=== PATIENT | female | born 1950 | race Caucasian/White ===

== ENCOUNTER 2024-09-02 12:16 | Emergency (ER) | payer MEDICARE, SELFPAY ==
--- NOTE | ~2024-09-02 | XR_ITS ---
EXAMINATION:XR cervical spine 4-5V DATE: 09/02/2024 13:50 INDICATION: Neck pain TECHNIQUE: AP, lateral, lateral swimmers and odontoid views of the cervical spine are provided. COMPARISON: None FINDINGS: Odontoid is intact. Mild osteoarthritis at the atlantoaxial articulation. 30 degrees upper thoracic l evoscoliosis with moderate spondylosis. There is 20 degrees compensatory cervicothoracic dextroscolio sis. 2 mm anterolisthesis C4 on C5. Vertebral body heights are normal. Moderate disc height loss at C 5-C6. Mild disc height loss at C4-C5. There is likely mild left-sided disc height loss at C6-C7 on th e frontal projection with the endplates not clearly profiled on the lateral projection. Moderate to s evere mid to lower cervical uncovertebral and facet osteoarthritis. Prevertebral soft tissues are no rmal. Mild pleural parenchymal scarring at the lateral right upper lung zone. IMPRESSION: 1. 20 degrees cervicothoracic dextroscoliosis and 30 degree upper thoracic levoscoliosis with moderat e spondylosis. Reviewed, dictated and finalized at location A. ROENTEROLOGY TECHNICIAN IMPRESSION: 1. 20 degrees cervicothoracic dextroscoliosis and 30 degree upper thoracic levo scoliosis with moderate spondylosis.
--- NOTE | ~2024-09-02 | XR_ITS ---
EXAMINATION: XR shoulder LT min 2V, XR shoulder RT min 2V DATE: 09/02/2024 13:51 INDICATION: Bilateral shoulder pain post fall TECHNIQUE: 1. AP internally and externally rotated and transscapular Y views of the right shoulder were obtained . 2. AP internally and externally rotated and transscapular Y views of the left shoulder were obtained. COMPARISON: None FINDINGS: Right shoulder: Normal alignment at the right shoulder. There is a 30 degrees upper thoracic levoscoliosis. No fractu re.Mild right glenohumeral and acromioclavicular osteoarthritis. Mild pleural parenchymal scarring al ebony the lateral right upper lung zone. Soft tissues are unremarkable. Left shoulder: Normal alignment at the left shoulder. No fracture.Mild left glenohumeral and acromioclavicular oste oarthritis. Additional mild left apical pleural-parenchymal scarring. Soft tissues are unremarkable. IMPRESSION: Mild osteoarthritis at the bilateral glenohumeral and acromioclavicular joints. No acute osseous abno rmality. Reviewed, dictated and finalized at location A. R FEEDER IMPRESSION: Mild osteoarthritis at the bilateral glenohumeral and acromioclavicular joints. No acute osseous abnormality.
--- NOTE | 2024-09-02 12:33 | ED_ITS ---
HPI - Fall General Chief Complaint: Fall Stated Complaint: Fall Injury/Right and Left Shoulder/Neck Pain Source: patient Mode of arrival: ambulatory Limitations: no limitations History of Present Illness HPI Narrative: 74 y/o female presented for c/o pain to multiple sites after she fell at home 2 days ago. Endorses neck and back pain, worse with any movements. Also reports bilateral shoulder pain with slightly decreased ROM. Denies numbness, tingling weakness or deformity. Pt states a rug slipped under her and she fell landing on the right shoulder. She lifted herself with the left arm and felt pain as well. Pt is applying heat, not taking anything for pain stating she has history of ulcers and cannot tolerate any medication. Related Data Home Medications Medication Instructions Recorded Confirmed atorvastatin 40 mg tablet 40 mg PO DAILY 09/02/24 09/02/24 Allergies Allergy/AdvReac Type Severity Reaction Status Date / Time codeine Allergy Unknown Vomiting Verified 09/02/24 12:34 diazepam Allergy Unknown Vomiting Verified 09/02/24 12:34 Penicillins Allergy Unknown Vomiting Verified 09/02/24 12:34 Sulfa (Sulfonamide Allergy Unknown Vomiting Verified 09/02/24 12:34 Antibiotics) muscle relaxers AdvReac Unknown Nausea and Uncoded 05/09/19 17:07 Vomiting Review of Systems Review of Systems: CONSTITUTIONAL: Denies body aches, fever, chills EYES: Denies visual changes CARDIOVASCULAR: Denies chest pain, palpitations, or edema. RESPIRATORY: Denies cough or dyspnea. GASTROINTESTINAL: Denies abdominal pain, nausea, vomiting, or diarrhea. SKIN: Denies rash, itching, or wounds. MUSCULOSKELETAL: reports neck, back pain, shoulder pain NEUROLOGIC: Denies headache, numbness, tingling, or weakness. All systems reviewed & are unremarkable except as noted in HPI and below [facility] Past Medical History Medical History (Updated 09/02/24 @ 14:26 by Randa Hamilton, SURINDER) Diabetes Comments At time of signature, I have reviewed and agree with nursing past medical, surgical, social and family history unless otherwise noted. Please see nursing chart for further information. There is no relevant family history pertinent to the presenting complaint Exam Narrative: GENERAL: Well-appearing HEAD: Normocephalic, atraumatic. EYES: PERRLA NECK: Decreased ROM due to pain. Tender with palpation to C3-4 area. No step off. CHEST: Speaks in full sentences. No respiratory distress. HEART: Regular rate and rhythm. Normal and equal peripheral pulses. EXTREMITIES: BUEs have normal strength and sensation. Right trap tenderness with palpation. Slightly decreased range of motion at shoulders due to pain with movement; tolerates lateral extension to 90 degrees. No edema or ecchymosis, No point tenderness. No open wounds, or obvious deformity; alignment normal, pulse palpable and equal bilaterally, skin warm, dry, pink. Capillary refill less than 3 seconds. SKIN: Warm, dry NEURO: Alert and oriented x3. PSYCH: Normal mood and affect Course Course Emergency Course: Patient is aware of diagnosis, understands and agrees to treatment plan. Antic ipatory guidance given. Patient agrees to follow-up as directed and is aware of reasons to seek care at the emergency department. Portions of this record may have been created with voice recognition software Level of Care: Express Care Visit Vital Signs Vital signs: Vital Signs Temperature 99.9 F H 09/02/24 12:34 Pulse Rate 85 09/02/24 12:34 Respiratory Rate 16 09/02/24 12:34 Blood Pressure 142/67 H 09/02/24 12:34 Pulse Oximetry 99 09/02/24 12:34 Oxygen Delivery Room Air 09/02/24 12:34 Temperature 99.9 F H 09/02/24 13:03 Pulse Rate 85 09/02/24 13:03 Respiratory Rate 16 09/02/24 13:03 Blood Pressure 142/67 H 09/02/24 13:03 Pulse Oximetry 99 09/02/24 13:03 Oxygen Delivery Room Air 09/02/24 13:03 Reviewed MDM - Fall MDM Narrative Medical decision making narrative: Discussed physical exam findings and xray results. Advised pt and family CT imaging would be best given pt's neck pain after a fall. They decline ER transfer at this time. The patient is clinically sober, AA&Ox3, free from distracting injury. The patient has demonstrated concrete thinking/reasoning, has maintained an stringing machine tender/reasonable conversation, appears to have intact insight/judgment/reason and therefore has capacity to make decisions. Given the patients presentation, we communicated our concern for neck pain in laymans terms. The patient verbalized an understanding. The patient is aware the evaluation is incomplete & many troublesome conditions have not been r/o. We have discussed the need for further ED workup. We have discussed the range of possible dx, potential testing & treatment options. Our discussions included the potential outcomes of leaving AMA, including worsening of their condition, becoming permanently disabled/in pain/critically ill, or . Despite these efforts, we were unable to convince the pt to go to the ER. We have attempted to offer tx/rx/guidance for any ramon erous conditions which are most likely and/or dangerous. We have answered all questions and have implored the patient to go to ER [facility] to complete the w/u. A staff member witnessed the patient consenting to AMA. Differential Diagnosis Differential diagnosis: Likely other (Shoulder dislocation, clavicle fracture, humerus fracture, scapular fracture, acromioclavicular joint injury, rotator cuff tear, bicep tendon rupture, tricep tendon rupture, MVC, cervical strain, cervical radiculopathy, cervical spine fracture/dislocation/herniation Musculoskeletal injury, torticol) Imaging Data Radiologist's impression: Patient: Pam Colbert : 1950 MR#: [id number] Age: 74 Acct:[id number] Loc: [facility] ADM Date: 09/02/24Attending Dr: Ordering Physician: Randa Hamilton APRN Date of Service: 09/02/24 Procedure(s): XR cervical spine 4-5V Accession Number(s): [id number] cc: Azael, Ashley HERRERA; Randa Hamilton PHOTOGRAPHY ASSISTANT~ EXAMINATION:XR cervical spine 4-5V DATE: 09/02/2024 13:50 INDICATION: Neck pain TECHNIQUE: AP, lateral, lateral swimmers and odontoid views of the cervical spine are provided. COMPARISON: None FINDINGS: Odontoid is intact. Mild osteoarthritis at the atlantoaxial articulation. 30 degrees upper thoracic levoscoliosis with moderate spondylosis. There is 20 degrees compensatory cervicothoracic dextroscoliosis. 2 mm anterolisthesis C4 on C5. Vertebral body heights are normal. Moderate disc height loss at C5-C6. Mild disc height loss at C4-C5. There is likely mild left-sided disc height loss at C6-C7 on the frontal projection with the endplates not clearly profiled on the lateral projection. Moderate to severe mid to lower cervical uncovertebral and facet osteoarthritis. Prevertebral soft tissues are normal. Mild pleural parenchymal scarring at the lateral right upper lung zone. IMPRESSION: 1. 20 degrees cervicothoracic dextroscoliosis and 30 degree upper thoracic levoscoliosis with moderate spondylosis. Patient: Pam Colbert : 1950 MR#: [id number] Age: 74 Acct:[id number] Loc: [facility] ADM Date: 09/02/24Attending Dr: Ordering Physician: Randa Hamilton APRN Date of Service: 09/02/24 Procedure(s): XR shoulder LT min 2V; XR shoulder RT min 2V Accession Number(s): [id number]; [id number] cc: Azael, Ashley HERRERA; Randa Hamilton APRN~ EXAMINATION: XR shoulder LT min 2V, XR shoulder RT min 2V DATE: 09/02/2024 13:51 INDICATION: Bilateral shoulder pain post fall TECHNIQUE: 1. AP internally and externally rotated and transscapular Y views of the right shoulder were obtained. 2. AP internally and externally rotated and transscapular Y views of the left shoulder were obtained. COMPARISON: None FINDINGS: Right shoulder: Normal alignment at the right shoulder. There is a 30 degrees upper thoracic levoscoliosis. No fracture.Mild right glenohumeral and acromioclavicular osteoarthritis. Mild pleural parenchymal scarring along the lateral right upper lung zone. Soft tissues are unremarkable. Left shoulder: Normal alignment at the left shoulder. No fracture.Mild left glenohumeral and acromioclavicular osteoarthritis. Additional mild left apical pleural- parenchymal scarring. Soft tissues are unremarkable. IMPRESSION: Mild osteoarthritis at the bilateral glenohumeral and acromioclavicular joints. No acute osseous abnormality. Discharge Plan Discharge Clinical Impression: Acute neck pain, Bilateral shoulder pain Patient Disposition: Home, Self-Care Condition: Stable Instructions: Shoulder Pain (ED), Acute Neck Pain (ED) Additional Instructions: You were advised to transfer to the ER and you decline at this time. You were made aware of the risk of refusal including worsening of your condition and . Report to the ER immediately by calling 911 for any worsening symptoms. Rest. Avoid pushing, pulling, lifting or anything that worsens the symptoms If you cannot take Tylenol or ibuprofen, recommend Alternate ice/heat to the site. Lidocaine or salon pas pain patch or use pain cream like icy/hot or biofreeze. Follow up with your primary care provider next week Go to the ER for worsening symptoms or concerns Prescriptions: No Action atorvastatin 40 mg tablet 40 mg PO DAILY Follow-up/Referrals: Azael,MD Ashley [Primary Care Provider] -
[2024-09-02 12:34] VITALS: BP 142/67; PULSE 85; RESP 16; TEMP 37.7; O2SAT 99
[2024-09-02 13:03] VITALS: BP 142/67; PULSE 85; RESP 16; TEMP 37.7; O2SAT 99
== END 2024-09-02 14:36 | disposition home or self-care (01) ==
PROVIDERS: Emergency Provider Nurse Practitioner Family; PCP Family Medicine
DX: M54.2 Cervicalgia (principal); M25.512 Pain in left shoulder; M25.511 Pain in right shoulder; E11.9 Type 2 diabetes mellitus without complications
CPT/HCPCS: 72050; 73030; 99214; G0463

== ENCOUNTER 2025-09-06 10:28 | Emergency (ER) | payer MEDICARE, SELFPAY ==
[2025-09-06 10:36] VITALS: BP 113/75; PULSE 68; RESP 16; TEMP 36.9; O2SAT 100
--- NOTE | 2025-09-06 11:01 | ED.FEMALEGU ---
HPI - Female Genitourinary General Chief complaint: Urogenital-Female Stated complaint: blood in urine Time Seen by Provider: 09/06/25 10:47 Source: patient, family, RN notes reviewed and old records reviewed Mode of arrival: ambulatory Limitations: no limitations History of Present Illness HPI Narrative: 75 year old female accompanied by family member with complaints of pressure with urination and blood noted on tissue when wiping since yesterday evening. Patient has dementia and is poor historian and niece is accompanying patient to clinic today. Niece states that family has recently stepped in to taking care of patient has multimedia engineer healthcare management consultant during the day but is alone at night but they are in process of getting some Agency help for nighttime. 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 Family reports that they would like to find new doctor in [place] area since patient resides in [place]. Niece states that patient's b;ood sugar has been elevated for over a year and has never been put on any medication. MD elicited complaint: dysuria and UTI (blood urine) Pertinent past history: hysterectomy (cervical cancer, blood sugar has been elevated and has never been put on any medication) and other (alzheimers) Onset (ago): day(s) (since yesterday evening blood noted on tissue) Location of symptoms: urethra Severity: moderate Vaginal discharge: none Vaginal bleeding: none Urinary symptoms: Dysuria and Hematuria Related Data Allergies Allergy/AdvReac Type Severity Reaction Status Date / Time codeine Allergy Unknown Vomiting Verified 09/06/25 10:49 diazepam Allergy Unknown Vomiting Verified 09/06/25 10:49 Penicillins Allergy Unknown Vomiting Verified 09/06/25 10:49 Sulfa (Sulfonamide Allergy Unknown Vomiting Verified 09/06/25 10:49 Antibiotics) muscle relaxers AdvReac Unknown Nausea and Uncoded 05/09/19 17:07 Vomiting Review of Systems Review of Systems: CONSTITUTIONAL: Denies fever, chills, or sweats. CARDIOVASCULAR: Denies chest pain, palpitations, or edema. RESPIRATORY: Denies cough or dyspnea. GASTROINTESTINAL: Denies abdominal pain, nausea, vomiting, or diarrhea. GENITOURINARY: Reports dysuria, frequency, urgency. Denies flank pain + hematuria. SKIN: Denies rash or itching. MUSCULOSKELETAL: Denies back pain or myalgia. Denies CVA tenderness NEUROLOGIC: Denies headache, patient has dementia All systems reviewed & are unremarkable except as noted in HPI and below PMFSH Past Medical History Medical History (Updated 09/07/25 @ 12:08 by Harriett Adame APRN) Alzheimers disease Uterine cancer Diabetes Surgical History Surgical History (Updated 09/06/25 @ 11:10 by Harriett Adame APRN) H/O: hysterectomy Social History Social History (Updated 09/07/25 @ 11:57 by Harriett Adame APRN) Smoking status: Never smoker Alcohol intake: former Alcohol use details: social Substance use type: does not use Living arrangements: alone Additional living arrangements comments: has family healthcare management consultant with patient during the day are trying to arrange some agency help at night. 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 There is no relevant family history pertinent to the presenting complaint Exam Narrative: GENERAL: elderly-appearing, fair-nourished, frail and in no acute distress. HEAD: Normocephalic, atraumatic. NECK: Supple. no lymphadenopathy CHEST: Clear to auscultation. No respiratory distress. no cough noted [id number] on room air HEART: Regular rate and rhythm. No murmur heard. Normal peripheral pulses. ABDOMEN: Soft, nontender, to palpation, nondistended, normal active bowel sounds. No CVA tenderness, blood noted in urine by patient and family EXTREMITIES: Normal range of motion. No edema. SKIN: Warm, dry, no rash. NEURO: No focal deficits. Alert and oriented X3 unable to recall information has history of Alzheimer needs frequent explanation and instruction. Course Course Level of Care: Express Care Visit Vital Signs Vital signs: Vital Signs Temperature 36.9 C 09/06/25 10:36 Pulse Rate 68 09/06/25 10:36 Respiratory Rate 16 09/06/25 10:36 Blood Pressure 113/75 09/06/25 10:36 Pulse Oximetry 100 09/06/25 10:36 Oxygen Delivery Room Air 09/06/25 10:36 Temperature 36.9 C 09/06/25 10:36 Pulse Rate 68 09/06/25 10:36 Respiratory Rate 16 09/06/25 10:36 Blood Pressure 113/75 09/06/25 10:36 Pulse Oximetry 100 09/06/25 10:36 Oxygen Delivery Room Air 09/06/25 10:36 reviewed [facility] Narrative Medical decision making narrative: Differential diagnostic considerations for female urogenital? issues include urinary tract infection, bacterial vaginosis, cervicitis, ovarian cyst, vaginitis, STI exposure, ovarian torsion, ectopic , cyst of Bartholin?s gland, cystitis, dysmenorrhea.?? Differential Diagnosis Differential Diagnosis: pressure with urination. hematuria, cystitis, UTI in female Lab Data [facility] Lab Attestation statement: I personally reviewed the patient's lab results. Lab results narrative: see urine dip resulted, Positive for blood 1+, Protein1+, trace glucose, leukocytes 2+, with specific gravity 1.030, finger stick glucose 191 Labs: Lab Results 09/06/25 Range/Units 11:07 POC Capillary Glucose 191 H (65-105) mg/dl POC Urine Color Yellow POC Urine Clarity Clear POC Urine pH 5.5 POC Ur Specif [place] 1.030 POC Urine Protein 1+ (Negative) POC Ur Glucose (UA) Trace (Negative) POC Urine Ketones Negative (Negative) POC Urine Blood 1+ (Negative) POC Urine Nitrite Negative (Negative) POC Urine Bilirubin Negative (Negative) POC Urine Urobilinogen 0.2 POC U Leukocyte Esteras 2+ (Negative) reviewed Critical Care Time Critical Care Time Critical Care Time: No Discharge Plan Discharge Clinical Impression: Urinary tract infection, Alzheimer's dementia, Elevated blood sugar Patient Disposition: Home Condition: Stable Instructions: Antibiotic Form, Urinary Tract Infection in Women (ED), Type 2 Diabetes in the Older Adult (ED) Additional Instructions: Increase fluids especially cranberry juice and water Avoid caffeine and carbonated beverages Antibiotic as directed Antibiotic as prescribed take all doses of medication Tylenol/ibuprofen for pain or fever Follow-up with her primary care provider if further problems or concerns Recheck if you have fever over 101, nausea and vomiting. If your symptoms persist, change or worsen significantly before you can contact your personal physician then please, without delay, go to the emergency department for further evaluation. Follow-up with PCP in 7-10 days or sooner if needed Patient Language: Yakut Prescriptions: New ciprofloxacin HCl 250 mg tablet 250 mg PO Q12H Qty: 14 0RF Follow-up/Referrals: Dr Montgomery [Other] Macy Montgomery DO [Physician, Family Practice] Referral Note: Wish to establish care with new physician in [place]. Family is caring for patient and plan to include some agency help also. Patient lives in [place] Clinical Impression: Alzheimer's dementia; Urinary tract infection Time of Disposition: 11:26 Quality Naylor Coma Scale Eyes: Open Verbal: Oriented and Alert Motor: Follows Commands Sharla Coma Total Score: 15
--- NOTE | 2025-09-06 11:06 | ED.FEMALEGU ---
HPI - Female Genitourinary General Chief complaint: Urogenital-Female Stated complaint: blood in urine Time Seen by Provider: 09/06/25 10:47 Source: patient, family, RN notes reviewed and old records reviewed Mode of arrival: ambulatory Limitations: no limitations History of Present Illness HPI Narrative: 75 year old female accompanied by niece with complaints that patient states pressure when she urinates and noted blood on tissue when she wiped last night. MD elicited complaint: UTI Related Data Allergies Allergy/AdvReac Type Severity Reaction Status Date / Time codeine Allergy Unknown Vomiting Verified 09/06/25 10:49 diazepam Allergy Unknown Vomiting Verified 09/06/25 10:49 Penicillins Allergy Unknown Vomiting Verified 09/06/25 10:49 Sulfa (Sulfonamide Allergy Unknown Vomiting Verified 09/06/25 10:49 Antibiotics) muscle relaxers AdvReac Unknown Nausea and Uncoded 05/09/19 17:07 Vomiting Review of Systems Review of Systems: CONSTITUTIONAL: Denies fever, chills, or sweats. CARDIOVASCULAR: Denies chest pain, palpitations, or edema. RESPIRATORY: Denies cough or dyspnea. GASTROINTESTINAL: Denies abdominal pain, nausea, vomiting, or diarrhea. GENITOURINARY: Reports dysuria, frequency, urgency. Denies flank pain or hematuria. SKIN: Denies rash or itching. MUSCULOSKELETAL: Denies back pain or myalgia. Denies CVA tenderness NEUROLOGIC: Denies headache All systems reviewed & are unremarkable except as noted in HPI and below PMFSH Past Medical History Medical History (Updated 09/06/25 @ 11:32 by Harriett Adame APRN) Alzheimers disease Uterine cancer Diabetes Surgical History Surgical History (Updated 09/06/25 @ 11:10 by Harriett Adame APRN) H/O: hysterectomy Comments At time of signature, agree with nursing past medical, surgical, social and family history. There is no relevant family history pertinent to the presenting complaint Exam Narrative: GENERAL: Well-appearing, well-nourished, and in no acute distress. HEAD: Normocephalic, atraumatic. NECK: Supple. CHEST: Clear to auscultation. No respiratory distress. HEART: Regular rate and rhythm. No murmur heard. Normal peripheral pulses. ABDOMEN: Soft, nontender, nondistended, normal active bowel sounds. No CVA tenderness EXTREMITIES: Normal range of motion. No edema. SKIN: Warm, dry, no rash. NEURO: No focal deficits. Alert and oriented x3. Course Course Level of Care: Express Care Visit Vital Signs Vital signs: Vital Signs Temperature 36.9 C 09/06/25 10:36 Pulse Rate 68 09/06/25 10:36 Respiratory Rate 16 09/06/25 10:36 Blood Pressure 113/75 09/06/25 10:36 Pulse Oximetry 100 09/06/25 10:36 Oxygen Delivery Room Air 09/06/25 10:36 Temperature 36.9 C 09/06/25 10:36 Pulse Rate 68 09/06/25 10:36 Respiratory Rate 16 09/06/25 10:36 Blood Pressure 113/75 09/06/25 10:36 Pulse Oximetry 100 09/06/25 10:36 Oxygen Delivery Room Air 09/06/25 10:36 MDM Differential Diagnosis Differential Diagnosis: dysuria, blood in urine.cystitis, Lab Data MDM Lab Attestation statement: I personally reviewed the patient's lab results. Lab results narrative: urine dip: glucose trace bilirubin negative ketone negative specific gravity greater than or equal to 1.30, blood 1+ pH 5.5, protein 1+ year old male image in 0.2 trait negative leukocyte 2+ Discharge Plan Discharge Clinical Impression: Urinary tract infection, Alzheimer's dementia, Elevated blood sugar Patient Disposition: Home Condition: Stable Instructions: Antibiotic Form, Urinary Tract Infection in Women (ED), Type 2 Diabetes in the Older Adult (ED) Additional Instructions: Increase fluids especially cranberry juice and water Avoid caffeine and carbonated beverages Antibiotic as directed Antibiotic as prescribed take all doses of medication Tylenol/ibuprofen for pain or fever Follow-up with her primary care provider if further problems or concerns Recheck if you have fever over 101, nausea and vomiting. If your symptoms persist, change or worsen significantly before you can contact your personal physician then please, without delay, go to the emergency department for further evaluation. Follow-up with PCP in 7-10 days or sooner if needed Patient Language: Filipino Prescriptions: New ciprofloxacin HCl 250 mg tablet 250 mg PO Q12H Qty: 14 0RF Follow-up/Referrals: Dr Montgomery [Other] Macy Montgomery DO [Physician, Family Practice] Referral Note: Wish to establish care with new physician in [place]. Family is caring for patient and plan to include some agency help also. Patient lives in [place] Clinical Impression: Alzheimer's dementia; Urinary tract infection Time of Disposition: 11:26 Quality Sharla Coma Scale Eyes: Open Verbal: Oriented and Alert Motor: Follows Commands Sharla Coma Total Score: 15
[2025-09-06 11:12] LABS: EDUAAPPEAR Clear; EDUABILI Negative (Negative); EDUABLOOD 1+ (Negative); EDUACOLOR1 Yellow; EDUAGLUCOSE Trace (Negative); EDUAKETONE Negative (Negative); EDUALEUKO 2+ (Negative); EDUANITRATE Negative (Negative); EDUAPH 5.5; EDUAPROTEIN 1+ (Negative); EDUASPGRAVITY 1.030; EDUAUROBILI 0.2
--- OUTSIDE RECORDS SUMMARY | 2025-09-06 11:57 | XMS_ITS | Clinical Summary ---
Author Organization [facility] [employer] Address [address] [place] [address] Care Team Providers Care Field Crop Ii Farmworker Name Role Phone Sergey Mcelroy MD Primary Care Provi cee Source Comments [facility] [employer],non-owned Affiliates and Associated Physician Practices is amultiple site organization consisting of ambulatory clinics and hospital sitesin [place], [place], [place] and [place]. This disclosure is being madepursuant to the Care Everywhere program and may not contain all information available regarding this patient. Last updated 18.[facility] [employer] Allergies Active Allergy Reactions Criticality Noted Date Comments Codeine Other 02/09/2018 Hallucinations Nsaids GI Discomfort 02/09/2018 Penicillins Rash Medium 02/09/2018 Sulfa Drugs Rash Medium 02/09/2018 Diazepam Other 02/09/2018 Hallucination Medications * Be aware that medications may not be up to date on this document. Alwaysverify current medications with the patient. vitamin D, ergocalciferol, (DRISDOL) 24108 UNITS capsuleIndicati ons:Pain in joint, multiple sites Take 50,000 Units by mouth every 7 days Active cycloSPORINE (RESTASIS) 0.05 % ophthalmic suspensionIndic ations:Pain in joint, multiple sites Instill into both eyes 2 times daily Active ibuprofen (ADVIL) 200 MG capsuleIndicati ons:Pain in joint, multiple sites Take 200 mg by mouth once daily as needed for Pain Active diclofenac sodium (VOLTAREN) 1 % gelIndications: Pain in joint, multiple sites Apply 2 g to affected area once as needed 1 tube 02/09/2018 Active Active Problems No known active problems Social History Tobacco Use Types Packs/Day Years Used Date Smoking Tobacco: Never Assessed Comments Unknown Sex and Gender Information Value Date Recorded Sex Assigned at Not on file Legal Sex Female 6:24 AM WRISTER Gender Identity Not on file Sexual Orientation Not on file Last Filed Vital Signs Vital Sign Reading Time Taken Comments Blood Pressure 90/60 02/09/2018 8:54 AM CDT Pulse - - Temperature - - Respiratory Rate - - Oxygen Saturation - - Inhaled Oxygen Concentration - - Weight 52.6 kg (116 lb) 02/09/2018 8:54 AM CDT Height 165.1 cm (5' 5) 02/09/2018 8:54 AM CDT Body Mass Index 19.3 02/09/2018 8:54 AM CDT Plan of Treatment Health Maintenance Due Date Last Done Comments BONE DENSITY TESTING 1950 COLOGUARD (AGES 45-75) - COL ON CA SCREENING 1950 COLON MONITORING 1950 COLONOSCOPY - COLON CA SCREENING 1950 CT COLONOGRAPHY - COLON CA SCREENING 1950 Colorectal Cancer Screening 1950 FIT - COLON CA SCREENING 1950 FLEX SIG - COLON CA SCREENING 1950 LIPID TESTING 1950 DTAP/TDAP/TD VACCINES (1 - Tdap) 1969 PNEUMOCOCCAL VACCINE 50+ (1 of 1 - PCV) 01/25/2000 ZOSTER VACCINE (1 of 2) 01/25/2000 MAMMOGRAM 08/12/2013 08/12/2011, 06/19/2010, 04/23/2009 DEPRESSION SCREENING 10/05/2024 Respiratory Syncytial Virus (RSV) Vaccine Pt: or over 60 yrs (1 - 1-dose 75+ series) 2025 COVID-19 VACCINE (2024-2 6 season) 2025 INFLUENZA VACCINE (#1) 2025 HEPATITIS C SCREENING Completed 02/22/2018 HEPATITIS B VACCINE Aged Out No longe r eligible based on patient's age to complete this topic HIB VACCINE Aged Out No longer eligi ble based on patient's age to complete this topic HPV VACCINE Aged Out No longer eligi ble based on patient's age to complete this topic MENINGOCOCCAL (Group B) VACCINE SHARED DECISION-MAKING Aged Out No longer eligible based on patient's age to complete this topic MENINGOCOCCAL GROUPS A/C/Y/W VACCINE Aged Out No longer eligible b ased on patient's age to complete this topic Procedures Procedure Name Priority Date/Time Associated Diagnosis Comments HEPATITIS SCREEN ACUTE Routine 02/22/2018 11:07 AM CDT Pain in joint, multiple sites MAMMO BILAT SCREENING Routine 08/12/2011 10:29 AM WRISTER Other screening mammogram from Last 3 Months or Most Recently Relevant to Health Maintenance Results * HEPATITIS SCREEN ACUTE (02/22/2018 11:07 AM CDT) Hepatitis A Virus Antibody IgM Negative Negative [facility] INSURANCE BILL Hepatitis B Virus Surface Antigen Negative Negative [facility] INSURANCE BILL Hepatitis B Core Virus Antibody IgM Negative Negative [facility] INSURANCE BILL Hepatitis C Antibody <0.1 0.0 - 0.9 s/co ratio [facility] INSURANCE BILL Comment: Negative: < 0.8 Indeterminate: 0.8 - 0.9 Positive: > 0.9 . The CDC recommends that a positive HCV antibody result be followed up with a HCV Nucleic Acid Amplification test (437539). Blood BLOOD SPECIMEN / Unknown 02/22/2018 11:07 AM CDT 02/22/2018 Narrative [facility]ing [facility] [address] [facility] [id number] Mitchell Grier MD LAB - CHEMISTRY ORDERABLES Final Result [facility] INSURANCE BILL [address] [place] [address] * NAYANA SCREENING DIGITAL IMAGE BILATERAL [id number] (08/12/2011 10:29 AM WRISTER) Anatomical Region Laterality Modality Breast Bilateral Mammography 08/12/2011 1:49 PM WRISTER Narrative 08/12/2011 1:49 PM WRISTER EXAMINATION: Digital screening mammogram on 08/12/2011. HYDRAULIC JACK OPERATOR: Akosua Freitas RT, RM PRIOR: 06/19/2010 FINDINGS: Computer assisted detection was utilized. The tissue density is dense which decreases the overall sensitivity of the screening mammogram. There is no significant change since the prior mammogram. No suspicious mass or suspicious calcification is seen. ASSESSMENT: BIRADS Category 1: Negative mammogram. RECOMMENDATION: Follow up in one year. [facility] utilizes [employer] as a reminder system to notify patients of their next recommended mammogram. Procedure Note Galdino Angeles MD - 08/12/2011 EXAMINATION: Digital screening mammogram on 08/12/2011. HYDRAULIC JACK OPERATOR: Akosua Freitas RT, PRIOR: 06/19/2010 FINDINGS: Computer assisted detection was utilized. The tissue density is dense which decreases the overall sensitivity of the screening mammogram. There is no significant change since the prior mammogram. No suspicious mass or suspicious calcification is seen. ASSESSMENT: BIRADS Category 1: Negative mammogram. RECOMMENDATION: Follow up in one year. [facility] utilizes [employer] as a reminder system to notify patients of their next recommended mammogram. Nelsy Mir MD MAMMO ORDERABLES Final R esult from Last 3 Months or Most Recently Relevant to Health Maintenance Insurance MEDICARE ADVANTAGE GENERIC Care Teams Field Crop Ii Farmworker Relationship Specialty Start Date End Date Sergey Mcelroy MD [address] [place] [address] PCP - General 06/19/10
--- OUTSIDE RECORDS SUMMARY | 2025-09-06 11:57 | XMS_ITS | Encounter Summary ---
Author Organization [facility] Address [address] [place] [address] Phone Care Team Providers Care Program Counselor Name Role Phone Sergey Mcelroy MD Primary Care Provi cee Nelsy Young MD Unavailable [phone] Ashley Addison MD Primary Care Provide r Ange Hernandez MA Unavailable Arnoldo Ventura DO Unavailable [phone] Encounter Details Date Type Department Care Team (Late st Contact Info) Description 10/12/2017 Orders Only [facility] ProviderLydia MD [address] [place] [id number] Social History Tobacco Use Types Packs/Day Years Used Date Smoking Tobacco: Never Smokeless Tobacco: Never Alcohol Use Standard Drinks/Week Comments No 0 (1 standard drink = 0.6 oz pur e alcohol) Comments Unknown Sex and Gender Information Value Date Recorded Sex Assigned at Not on file Legal Sex Female 11:52 PM FORESTRY AID TECHNICIAN Gender Identity Not on file Sexual Orientation Not on file documented as of this encounter Plan of Treatment Not on file documented as of this encounter Procedures Procedure Name Priority Date/Time Associated Diagnosis Comments DISCHARGE LABORATORY CUMULATIVE REPORT 10/12/2017 12:00 AM FORESTRY AID TECHNICIAN documented in this encounter Results * DISCHARGE LABORATORY CUMULATIVE REPORT (10/12/2017 12:00 AM FORESTRY AID TECHNICIAN) Narrative 10/12/2017 12:00 AM FORESTRY AID TECHNICIAN Ordered by an unspecified provider. us Historical Provider LAB BLOOD ORDERABLES Sarah l Result documented in this encounter Visit Diagnoses Not on filedocumented in this encounter Additional Health Concerns Infection Onset Date Last Indicated Resolved Time COVID: Suspected 04/11/2022 04/11/2022 04/11/2022 8:17 AM CDT COVID: Suspected 09/10/2023 09/10/2023 09/10/2023 10:40 AM FORESTRY AID TECHNICIAN documented as of this encounter Care Teams Program Counselor Relationship Specialty Start Date End Date Sergey Mcelroy MD PCP - General 01/02/17 06/25/22 Ashley Addison MD [address] [place] [address] PCP - General Family Medicine 06/26/22 Nelsy Young MD [address] [place] [address] Consulting Physician Obstetrics and Gynecology 03/02/19 Ange Hernandez MA [address] [place] [address] [address] [place] [address] ACO Care Supervisor Road Administrator 09/13/24 09/14/24 Arnoldo Ventura DO [address] [place] [address] Consulting Physician Gastroenterology 12/16/24 documented as of this encounter
--- OUTSIDE RECORDS SUMMARY | 2025-09-06 11:57 | XMS_ITS | Encounter Summary ---
Author Organization [facility] Address [address] [place] [address] Care Team Providers Care Bobbin Collector Name Role Phone Nelsy Young MD Unavailable [phone] Ashley Addison MD Primary Care Provide r Arnoldo Ventura DO Unavailable [phone] Reason for Visit * Auth/Cert (Routine) Specialty Diagnoses / Procedures Referred By Larissa chung Referred To Contact Diagnoses History of colonic polyps Encounter for screening colonoscopy History of colonic polyps [Z86.0100] Encounter for screening colonoscopy [Z12.11] Procedures MT COLONOSCOPY FLX DX W/COLLJ SPEC WHEN PFRMD COLONOSCOPY Referral ID Status Reason Start Date Expiration Date Visits Re quested Visits Authorized [id number] 1 1 Encounter Details Date Type Department Care Team (Late st Contact Info) Description 03/22/2025 Hospital Encounter [facility] [address] [place] [address] Arnoldo Ventura, [address] [place] [address] [place] [address] Social History Tobacco Use Types Packs/Day Years Used Date Smoking Tobacco: Never Passive Smoke Exposure: Never Smokeless Tobacco: Never Alcohol Use Standard Drinks/Week Comments No 0 (1 standard drink = 0.6 oz pur e alcohol) Humiliation, Afraid, Rape, and Kick questionnair e Answer Date Recorded Within the last year, have y ou been afraid of your partner or ex-partner? No 02/25/2021 Within the last year, have y ou been humiliated or emotionally abused in other ways by your partner or ex-partner? No Within the last year, have y ou been kicked, hit, slapped, or otherwise physically hurt by your partner or ex-partner? No 02/25/2021 Within the last year, have y ou been raped or forced to have any kind of sexual activity by your partner or ex-partner? No 02/25/2021 AUDIT-C Answer Date Recorded Q1: How often do you have a drink containing alcohol? Never 11/02/2023 Q2: How many drinks containi ng alcohol do you have on a typical day when you are drinking? Patient does not drink Q3: How often do you have si x or more drinks on one occasion? Never 11/02/2023 PHQ-2 Answer Date Recorded PHQ-2 Total Score (If total score is 3 or more points, staff should administer the PHQ-9) 0 02/06/2025 Personal Safety Answer Date Recorded Have you ever been in or are you currently in a harmful physical or emotional relationship or is someone making you feel afraid or unsafe? Denies 09/11/2024 Comments No Sex and Gender Information Value Date Recorded Sex Assigned at Not on file Legal Sex Female 11:52 PM CALL CENTER NURSE Gender Identity Not on file Sexual Orientation Not on file Occupation Industry Job Start Date Job End Date Retired Not on file Not on file Not on file documented as of this encounter Functional Status * In the past year, patient experienced: Question Answer Date of Assessment Author One or more falls in the last year 0 2024 11:18 AM Alma Bhatia MA * BP Location Answer Date of Assessment Author Left arm 02/06/2025 11:18 AM South Bhatia MA * BP Location Answer Date of Assessment Author Left arm 02/06/2025 11:18 AM South Bhatia MA documented as of this encounter Plan of Treatment Not on file documented as of this encounter Visit Diagnoses Diagnosis History of colonic polyps Personal history of colonic polyps Encounter for screening colonoscopy documented in this encounter Admitting Diagnoses Diagnosis History of colonic polyps Personal history of colonic polyps Encounter for screening colonoscopy documented in this encounter Care Teams Bobbin Collector Relationship Specialty Start Date End Date Ashley Addison MD [address] [facility] [address] [address] [place] [address] PCP - General Family Medicine 06/26/22 Nelsy Young MD [address] [place] [address] Consulting Physician Obstetrics and Gynecology 03/02/19 Arnoldo Ventura DO [address] [facility] [address] [facility] [address] [place] [address] Consulting Physician Gastroenterology 12/16/24 documented as of this encounter
--- OUTSIDE RECORDS SUMMARY | 2025-09-06 11:57 | XMS_ITS | Clinical Summary ---
Author Organization [facility] Address [address] [place] [id number] Care Team Providers Care A&P Mechanic Name Role Phone Nelsy Young MD Unavailable [phone] Ashley Addison MD Primary Care Provide r Arnoldo Ventura DO Unavailable [phone] Allergies Active Allergy Reactions Criticality Noted Date Comments Aspirin Stomach upset Low Codeine Other (See comments) Low 02/09/2018 Hallucinations Cortisone Other (See comments) Low Crystallization of injected cortisone Diazepam Other (See comments) Low 02/09/2018 Hallucination Ibuprofen Other (See comments) Low 03/11/2019 yeast infection Nsaids (Non-Steroidal Anti-Inflammatory Drug) Stomach upset Low 02/09/2018 Other Other (See comments) Low 03/11/2019 Muscle Relaxant, causing confussion Penicillins Rash Medium 02/09/2018 Sulfa (Sulfonamide Antibiotics) Rash Medium 02/09/2018 Acetaminophen Nausea only Low 03/11/2019 Medications furosemide (LASIX) 20 mg tablet Take 1 tablet (20 mg total) by mouth daily 90 tablet 4 02/06/2025 Active atorvastatin (LIPITOR) 40 mg tablet TAKE 1 TABLET BY MOUTH EVERY DAY 90 tablet 1 02/20/2025 Active memantine (NAMENDA) 10 mg tabletIndication s:Moderate to Severe Alzheimer's Type Dementia Take half tablet po bid for two weeks, then one tablet po bid 60 tablet 3 07/13/2025 Active Active Problems Problem Noted Date Diagnosed Date Severe late onset Alzheimer' s dementia without behavioral disturbance, psychotic disturbance, mood disturbance, or anxiety 07/13/2025 Ankle swelling 01/19/2025 Assessment & Plan (02/06/2025 12:31 PM CDT): Assessment & Plan (01/19/2025 11:45 AM CDT): New concern Not at goal Will get urinalysis, probnp, albumin cr urine ratio cmp Start furosemide 40mg daily for about a week F/u in 2 weeks for ankle swelling History of colonic polyps 09/20/2024 Encounter for screening colonoscopy 09/20/2024 Acute pain of right shoulder 09/12/2024 Assessment & Plan (09/12/2024 12:12 AM PICKER TENDER): New concern 2/2 recent fall Will get mri to rule out rotator cuff tear Referral to physical therapy Sent lidocaine patches for sx relief Unable to tolerate tylenol or nsaids F/u in 1 month for monitoring, may consider referral to ortho pending above results Fall 09/07/2024 Assessment & Plan (12/16/2024 10:06 AM CDT): Transthoracic Echocardiogram pending 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 Us carotid dopplers pending She was referred to neurology before and was suppose to all back to schedule an appt F/u at next appt in 3 months Recommend against driving for 6 months after syncopal episode Assessment & Plan (09/12/2024 12:02 AM PICKER TENDER): New concern Evaluate for cardiac etiology Transthoracic Echocardiogram 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 She was instructed to call back if symptoms do not improved in a week, or if worsening ones arise. Education provided. 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 She would like to transfer to someone in [place]. Dry skin 10/21/2022 Assessment & Plan (10/21/2022 9:14 AM PICKER TENDER): On the side of her face Recommend vaseline and otc hydrocortisone cream bid for a week Acute pain of right knee 06/30/2022 Assessment & Plan (06/30/2022 1:42 PM CDT): Unable to tolerate tylenol or NSAIDs Will try topical voltaren Xray of the knee If negative and no improvement at next visit will consider physical therapy Encounter for wellness examination 04/28/2022 Assessment & Plan (02/06/2025 12:31 PM CDT): Assessment & Plan (09/07/2024 9:36 AM PICKER TENDER): Labs reviewed and discussed Colonoscopy referral ordered Mammo up-to-date F/u in 1 year for annual Assessment & Plan (04/29/2023 10:19 AM CDT): Labs reviewed and discussed Colonoscopy up-to-date due in 2024 Mammo up-to-date F/u in 1 year for annual Assessment & Plan (04/28/2022 9:50 AM CDT): Well exam low fall risk depreoisn screen neg and cog screen nl md seeing dr beny burt now no other mdls later rellates gi follow up and neuro had p 13 and needs p 23 Fall flu shot and covid up to date. tetnus up dated.and get the new shingles shot series. Colon adenoma 04/28/2022 Assessment & Plan (06/22/2023 1:38 PM CDT): No further sx return prn Assessment & Plan (04/28/2022 9:49 AM CDT): Colon 2020 and adenoma sugest 5 yr re peat unless gi states otherwise. Bacterial pneumonia 04/14/2022 Assessment & Plan (04/28/2022 9:46 AM CDT): Repeat ct setup and pul seeing for Assessment & Plan (04/14/2022 9:45 AM CDT): On zithro 500 a day for 5 days markedly better would suggest repeat ct to follow up on to confirm resolution and referral to pum for sudhakar suggestoins on lung scarring. noted Pulmonary fibrosis 04/14/2022 Assessment & Plan (09/06/2024 9:51 PM PICKER TENDER): Stable / clinically quiescent. Will continue to monitor. Assessment & Plan (05/04/2023 9:08 AM CDT): Stable / clinically quiescent. Will continue to monitor. Assessment & Plan (04/28/2022 9:46 AM CDT): Stable ct of lungs Assessment & Plan (04/14/2022 9:46 AM CDT): On ct and referral to pulm for e sudhakar and sulggestions Adhesive capsulitis of right shoulder 12/16/2021 Rotator cuff tendinitis, right 11/04/2021 Tear of right biceps muscle 10/21/2021 Assessment & Plan (10/21/2021 9:39 AM PICKER TENDER): Referral to ortho for eval and treatment Hyperlipidemia due to type 2 diabetes mellitus 0 02/14/2021 Assessment & Plan (09/06/2024 9:46 PM PICKER TENDER): Lab Results Component Value Date LDLCALC 99 08/25/2024 Ldl goal <70 Stable / clinically quiescent. Will continue to monitor. Continue atorvastatin Assessment & Plan (05/17/2024 11:14 AM CDT): Stable / clinically quiescent. Will continue to monitor. Continue atorvastatin Assessment & Plan (10/20/2022 6:39 AM PICKER TENDER): Stable / clinically quiescent. Will continue to monitor. Continue atorvastatin Assessment & Plan (04/28/2022 9:44 AM CDT): a1c at 6.8 and age 72 and not reasonable for metformin given wt and [place] expect over time to see a1c Go up and then meds then ldl 78 but ascvd risk of 14% will see if an issue to take 40 of atorvastin and get to 60 or less. Your cholesterol in the form of ldl (bad) cholesterol,hdl(good) cholesterol and triglycerides are monitored. The triglycerides respond to reduction/controll of your simple carbs/sugars In such items as sugared soda/sweet tea along with fruit juices(containing natural sugar) even if no added sugar is added. LDL cholesterol is reduced with reducing daily intake of fats and sai. saturated fats. The monosaturated fats like olive oil are not harmful except in the calories they contained. Whole milk cheese needs to be remembered along with whole milk products And limited. Assessment & Plan (04/14/2022 9:48 AM CDT): Keep dieti tight and sugar c otolled and not lose more wt. Assessment & Plan (10/21/2021 9:19 AM PICKER TENDER): ldl at 95 and reasonable and and want lower.and sugest going to 20 mg form 10 or taking protion able 10 and less then 20 as option a1c atg 6.4 and stable Your cholesterol in the form of ldl (bad) cholesterol,hdl(good) cholesterol and triglycerides are monitored. The triglycerides respond to reduction/controll of your simple carbs/sugars In such items as sugared soda/sweet tea along with fruit juices(containing natural sugar) even if no added sugar is added. LDL cholesterol is reduced with reducing daily intake of fats and sai. saturated fats. The monosaturated fats like olive oil are not harmful except in the calories they contained. Whole milk cheese needs to be remembered along with whole milk products And limited.Diabetes management or controll revolves around several core concepts : weight controll,controlling the intake of rapidly absorbed sugars(read simple carbs that get rapidly absorbed such as sweetened tea,sugared soda,fruit juices or portions of fruit over 1/2 cup at a time) as well at the need to increase the sugar burned up through an n increase in your baseline activity.Breads,potatotes(white,yellow,sweet are all the same),most cereals and noodles all breakdown to sugar rapidly. This rapid breakdown or absorption challenges the body into handling this surge of sugar. The more these factors are controlled the more the sugar will be controlled. Assessment & Plan (02/14/2021 9:49 AM CDT): ldl as noted great and stay as doing and no diet Ulcerative colitis 10/17/2020 Assessment & Plan (09/06/2024 9:47 PM PICKER TENDER): Continue following with GI as needed Assessment & Plan (04/29/2023 10:17 AM CDT): Continue following with GI as needed Assessment & Plan (04/28/2022 9:47 AM CDT): Gi I past and suggest seeing every couple yrs Assessment & Plan (02/14/2021 9:42 AM CDT): See's gi and now off nuts for now and b12 is a need not otc meds Assessment & Plan (10/17/2020 9:20 AM PICKER TENDER): Some diet adjustments .has f.u with gi in couple weeks Type 2 diabetes mellitus without complication Assessment & Plan (09/07/2024 9:33 AM PICKER TENDER): The patient was counseled on a heart-healthy, diabetic-friendly diet, as well as life-style modification. Education provided on the diagnosis and risks of the disease. We will continue to monitor routine labs. Additionally, She was counseled on routine diabetic eye exams, foot exams, and other preventive care. Most recent A1c on file: Lab Results Component Value Date HGBA1C 7.7 (H) 08/25/2024 Goal <8 Continue diet and exercise. Discussed cutting back on any carbs Continue statin Bp borderline low, will hold of on carlie/arb for now A1c ordered today F/u in 3 months The patient was counseled on a heart-healthy, diabetic-friendly diet, as well as life-style modification. Education provided on the diagnosis and risks of the disease. We will continue to monitor routine labs. Additionally, She was counseled on routine diabetic eye exams, foot exams, and other preventive care. Most recent A1c on file: Assessment & Plan (05/17/2024 11:14 AM CDT): The patient was counseled on a heart-healthy, diabetic-friendly diet, as well as life-style modification. Education provided on the diagnosis and risks of the disease. We will continue to monitor routine labs. Additionally, She was counseled on routine diabetic eye exams, foot exams, and other preventive care. Most recent A1c on file: Lab Results Component Value Date HGBA1C 7.4 (H) 05/10/2024 Goal <8 Continue diet and exercise. Discussed cutting back on any carbs Continue statin Bp borderline low, will hold of on carlie/arb for now A1c ordered today F/u in 3 months Assessment & Plan (02/04/2024 9:20 AM CDT): The patient was counseled on a heart-healthy, diabetic-friendly diet, as well as life-style modification. Education provided on the diagnosis and risks of the disease. We will continue to monitor routine labs. Additionally, She was counseled on routine diabetic eye exams, foot exams, and other preventive care. Most recent A1c on file: Lab Results Component Value Date HGBA1C 7.7 (H) 01/28/2024 Continue diet and exercise. Discussed cutting back on any carbs A1c ordered today F/u in 3 months Assessment & Plan (11/02/2023 12:59 PM PICKER TENDER): The patient was counseled on a heart-healthy, diabetic-friendly diet, as well as life-style modification. Education provided on the diagnosis and risks of the disease. We will continue to monitor routine labs. Additionally, She was counseled on routine diabetic eye exams, foot exams, and other preventive care. Most recent A1c on file: Lab Results Component Value Date HGBA1C 7.3 (H) 10/22/2023 Continue diet and exercise. Discussed cutting back on any carbs A1c ordered today F/u in 3 months Assessment & Plan (04/29/2023 10:16 AM CDT): The patient was counseled on a heart-healthy, diabetic-friendly diet, as well as life-style modification. Education provided on the diagnosis and risks of the disease. We will continue to monitor routine labs. Additionally, She was counseled on routine diabetic eye exams, foot exams, and other preventive care. Most recent A1c on file: Lab Results Component Value Date HGBA1C 7.0 (H) 04/27/2023 Continue diet and exercise A1c ordered today F/u in 6 months Assessment & Plan (10/21/2022 9:17 AM PICKER TENDER): The patient was counseled on a heart-healthy, diabetic-friendly diet, as well as life-style modification. Education provided on the diagnosis and risks of the disease. We will continue to monitor routine labs. Additionally, She was counseled on routine diabetic eye exams, foot exams, and other preventive care. Most recent A1c on file:6.8 Continue diet and exercise A1c ordered today F/u in 6 months Assessment & Plan (02/14/2021 9:47 AM CDT): a1cx at 6.4 and great. No diet given bmi 18 Assessment & Plan (10/17/2020 9:28 AM PICKER TENDER): a1c at 6.4 now and was 6.5 watch diet and get eye evalDiabetes management or controll revolves around several core concepts : weight controll,controlling the intake of rapidly absorbed sugars(read simple carbs that get rapidly absorbed such as sweetened tea,sugared soda,fruit juices or portions of fruit over 1/2 cup at a time) as well at the need to increase the sugar burned up through an n increase in your baseline activity.Breads,potatotes(white,yellow,sweet are all the same),most cereals and noodles all breakdown to sugar rapidly. This rapid breakdown or absorption challenges the body into handling this surge of sugar. The more these factors are controlled the more the sugar will be controlled. Other fatigue 05/11/2020 Assessment & Plan (05/11/2020 1:55 PM CDT): Somewhat sounds post viral but ongoing issue check tsh cmp cbc for eval cardiac not high on list. Very atipiiical start with sleep apnea. Exp Wt issue being low Bloating 05/01/2020 Hand dermatitis 01/06/2020 Assessment & Plan (01/06/2020 9:44 AM CDT): r hand dermatitis with 1-2 mm dot blisters come and go and inflamed. freq diallo in water but not soap try to limt waxh brush for dishes. No soap if at all possible Cloth govlesat hnight and oinpment and cream during day every time was off prior hypoalergeic cream.; And times Raynaud's disease without gangrene 01/06/2020 Assessment & Plan (01/06/2020 9:47 AM CDT): l hland raise core temp gloves and hat With cool weather. . montior can treat with meds if needed Recurrent herpetic richard 12/13/2019 Assessment & Plan (12/13/2019 9:42 AM CDT): Prescription provided for valacylovir TID x 7 days. Patient instructed to follow up with dermatology. Keep areas clean and dry. Notify office with absolutely any worsening symptoms. Body mass index (BMI) of 19.9 or less in adult 0 12/13/2019 Assessment & Plan (02/06/2025 12:31 PM CDT): Assessment & Plan (10/21/2021 9:20 AM PICKER TENDER): Stable qandkpdd from losing wt. Assessment & Plan (02/14/2021 9:49 AM CDT): Work to keep wt up Assessment & Plan (10/17/2020 9:34 AM PICKER TENDER): Work to gain a couple more lbls. Assessment & Plan (12/13/2019 9:42 AM CDT): Recommended patient to continue to increase heart healthy diet with adequate fruits, vegetables, and plenty of water along with mild-moderate daily exercise as tolerated. Other constipation 11/01/2019 Assessment & Plan (05/04/2023 9:18 AM CDT): worsening Continue stool softener Add miralax once a day. If no improvement can increase it to twice a day Referral to GI for further recommendations Generalized abdominal pain 05/18/2019 Assessment & Plan (05/18/2019 11:00 AM CDT): Trial bentyl and if no help or enough then add nortrip and working with 1 firt at night and work up to 3-4-5 a day or night as needed. Appears functional bowel stay with miralalx and referral to gi at [place] thru assistant winemaker or we can Cyst of right ovary 03/11/2019 Overview (03/11/2019): Added automatically from request for surgery [id number] Referred otalgia of right ear 10/26/2017 Assessment & Plan (10/26/2017 9:30 AM PICKER TENDER): eaternal ear on and off. nothiing visible and will look at ent optino if cont Benign paroxysmal positional vertigo due to bilateral vestibular disorder 05/19/2017 Assessment & Plan (09/06/2024 9:47 PM PICKER TENDER): Stable / clinically quiescent. Will continue to monitor. Assessment & Plan (04/29/2023 10:17 AM CDT): Stable / clinically quiescent. Will continue to monitor. Assessment & Plan (10/17/2020 9:41 AM PICKER TENDER): Confirmed vertrigo and inner ear wexercdises work and ent /? Neuro confirmed dx. Assessment & Plan (10/26/2017 9:23 AM PICKER TENDER): Been to pt but reports the Eye spinning not present then. Uses The self pt when fl airs and will ask to do several times a week to try for preventino and intensify when asts up.. Look at Referral to neuro wrapping clerk whena dn assuming v ertigo re flairs and not settling for additional option/opion Assessment & Plan (05/19/2017 4:58 PM CDT): Already salt restricts. hasdone the maneuvers to some help but not aborted it. Will referer to [facility] . Dyazide as optoni not easyo with chronic low bp.low dose valium hs a place and works and a consideration. Vitamin B12 deficiency 04/16/2017 Assessment & Plan (10/21/2021 9:19 AM PICKER TENDER): Check on reutorn and keep on Assessment & Plan (02/14/2021 9:47 AM CDT): bq12 not a otc supplement but a drug and stay on and not stop Assessment & Plan (01/06/2020 9:50 AM CDT): Stay on and check Assessment & Plan (10/25/2018 9:48 AM PICKER TENDER): Off b12 aqsdn will restart Assessment & Plan (10/26/2017 9:16 AM PICKER TENDER): b12 up to 415 and stay on the 5oo dose as crosesed the 400 level Assessment & Plan (04/16/2017 9:40 AM CDT): B1`2 down to 275 and should be above 400. larry res tart b12 a nd use 500 a day and recheck to confirm Vitamin D deficiency 02/18/2014 Overview (01/07/2017): VITAMIN D DEFICIENCY NOS Assessment & Plan (10/21/2021 9:20 AM PICKER TENDER): D at 71 and good no changes Assessment & Plan (02/14/2021 9:47 AM CDT): D not a supplement or otc but a drug for you and unless ointedly told to stop I would stay on ihthe future Assessment & Plan (10/17/2020 9:26 AM PICKER TENDER): D d roped to 40 and want to stay here anmdnot drop and check onreturn Assessment & Plan (05/11/2020 1:56 PM CDT): check Assessment & Plan (01/06/2020 9:47 AM CDT): Vit d up to 46 and great and no chages Assessment & Plan (06/08/2019 10:21 AM CDT): D finally up 39 and Great and on 4000. 5 days a week and stay there. Intake calc at 800 a day with yoogurt and stay there andnot add calc piols Assessment & Plan (10/25/2018 9:45 AM PICKER TENDER): Vit d level 16 qnd needs a bout 4000 to get up. Target aboaut 40 then. Can take [id number] and woulde needs abouat 3 a monoth versus 4000 a day. Versus 5000 6 days a week. Hyperlipidemia 02/18/2014 Overview (01/07/2017): HYPERLIPIDEMIA NEC/NOS Assessment & Plan (09/06/2024 9:45 PM PICKER TENDER): Lab Results Component Value Date LDLCALC 99 08/25/2024 Ldl goal <100 Stable / clinically quiescent. Will continue to monitor. continue atorvastatin 40 mg daily Assessment & Plan (04/29/2023 10:16 AM CDT): Stable / clinically quiescent. Will continue to monitor. continue atorvastatin 40 mg daily Assessment & Plan (10/21/2021 9:19 AM PICKER TENDER): ldl at 95 and target less tgehen that no odiet Assessment & Plan (02/14/2021 9:48 AM CDT): ldl dropped nicely to 79 and great and stay as doing and again no diet Assessment & Plan (10/17/2020 9:33 AM PICKER TENDER): ldl 106 and want less then 100 go to 10 mg and check responceYour cholesterol in the form of ldl (bad) cholesterol,hdl(good) cholesterol and triglycerides are monitored. The triglycerides respond to reduction/controll of your simple carbs/sugars In such items as sugared soda/sweet tea along with fruit juices(containing natural sugar) even if no added sugar is added. LDL cholesterol is reduced with reducing daily intake of fats and sai. saturated fats. The monosaturated fats like olive oil are not harmful except in the calories they contained. Whole milk cheese needs to be remembered along with whole milk products And limited. Assessment & Plan (01/06/2020 9:49 AM CDT): ldl at 113 and target less then 100. Not statin tolerantYour cholesterol in the form of ldl (bad) cholesterol,hdl(good) cholesterol and triglycerides are monitored. The triglycerides respond to reduction/controll of your simple carbs/sugars In such items as sugared soda/sweet tea along with fruit juices(containing natural sugar) even if no added sugar is added. LDL cholesterol is reduced with reducing daily intake of fats and sai. saturated fats. The monosaturated fats like olive oil are not harmful except in the calories they contained. Whole milk cheese needs to be remembered along with whole milk products And limited. Assessment & Plan (06/08/2019 10:22 AM CDT): ldl at 108 and on 5mg lipitor and stay h;ere unlesss we find arterial disease. So not changes for nonw Assessment & Plan (10/25/2018 9:46 AM PICKER TENDER): ldl at 144 and target to less then 130. Your cholesterol in the form of ldl (bad) cholesterol,hdl(good) cholesterol and triglycerides are monitored. The triglycerides respond to reduction/controll of your simple carbs/sugars In such items as sugared soda/sweet tea along with fruit juices(containing natural sugar) even if no added sugar is added. LDL cholesterol is reduced with reducing daily intake of fats and sai. saturated fats. The monosaturated fats like olive oil are not harmful except in the calories they contained. Whole milk cheese needs to be remembered along with whole milk products And limited. Assessment & Plan (10/26/2017 9:17 AM PICKER TENDER): ldl at 173 and up from 150's. Statin intolerantTarget to get low3er.Your cholesterol in the form of ldl (bad) cholesterol,hdl(good) cholesterol and triglycerides are monitored. The triglycerides respond to reduction/controll of your simple carbs/sugars In such items as sugared soda/sweet tea along with fruit juices(containing natural sugar) even if no added sugar is added. LDL cholesterol is reduced with reducing daily intake of fats and sai. saturated fats. The monosaturated fats like olive oil are not harmful except in the calories they contained. Whole milk cheese needs to be remembered along with whole milk products And limited. Assessment & Plan (04/16/2017 9:39 AM CDT): The ldl at 152 and 160 and above high risk.Your cholesterol in the form of ldl (bad) cholesterol,hdl(good) cholesterol and triglycerides are monitored. The triglycerides respond to reduction/controll of your simple carbs/sugars In such items as sugared soda/sweet tea along with fruit juices(containing natural sugar) even if no added sugar is added. LDL cholesterol is reduced with reducing daily intake of fats and sai. saturated fats. The monosaturated fats like olive oil are not harmful except in the calories they contained. Whole milk cheese needs to be remembered along with whole milk products And limited. Resolved Problems Problem Noted Date Diagnosed Date Resolved Date Numbness and tingling of upp er and lower extremities of both sides 07/13/2025 07/13/2025 Aphasia 12/16/2024 07/13/2025 Assessment & Plan (02/06/2025 12:31 PM CDT): Assessment & Plan (01/18/2025 12:55 PM CDT): chronic MRI of the head and neck did not show any acute changes Cbc cmp tsh b12 mg folate b1 b6 pending Recommend following up with neurology F/u prn Assessment & Plan (12/16/2024 10:24 AM CDT): New concern Not at goal Will get a ct scan stat and hold Cbc cmp tsh b12 mg folate b1 b6 order Referral back to neurology given with a phone number to call Pending ct scan, will get an MRI/MRA in the future F/u in 1 month Difficulty with speech 02/05/202407/13 Assessment & Plan (02/05/2024 10:02 AM CDT): New concern stable Difficulty forming words Would be interested in seeing a neurologist since her mom had dementia Referral placed Viral upper respiratory tract infection 09/10/2023 09/06/2024 Assessment & Plan (09/10/2023 6:56 AM PICKER TENDER): New concern Not at goal Covid and flu swab Recommend fluids, rest, humidification if needed. She was instructed to call back if symptoms do not improved in a week, or if worsening ones arise. Education provided. Paresthesia of right leg 08/05/202206/2025 Memory loss 12/24/2021 07/13/2025 Mild cognitive impairment 10/21/2021 Assessment & Plan (09/12/2024 12:03 AM PICKER TENDER): Chronic Referred to neurology in the past Recent MRI in June did not show any acute concerning changes Given recent fall, will place another referral for further evaluation Assessment & Plan (05/17/2024 11:31 AM CDT): Chronic Will refer to neurology again Will get an MRI of the brain without contrast F/u pending results Assessment & Plan (04/28/2022 9:45 AM CDT): Has a yr;'ly follow up for neuro takes otc diet and meds and await neuro trial of meds Assessment & Plan (10/21/2021 9:29 AM PICKER TENDER): otes mom had but had chol 300. Small vessel diseasehigh risk but refer and see what neuro b12 and tsh nl. Acute cystitis without hematuria 10/17/2020 04/28/2022 Assessment & Plan (10/17/2020 9:40 AM PICKER TENDER): Odor and pain. Would look like uti and check urine and if neg then gu versus assistant winemaker to eval and Gi might also be answer. Little atypical but definitely could be uti check urien and then move on for eval ifnot showing a uti Other emphysema 06/08/2019 04/12/2020 Assessment & Plan (06/08/2019 10:28 AM CDT): On cxr Abnormal CXR 06/08/2019 04/12/2020 Assessment & Plan (06/08/2019 10:29 AM CDT): Repeat cxr with nov to confirm stable or changeds with ? Of overlaping shilo Postop check 03/30/2019 09/06/2024 IGT (impaired glucose tolerance) 10/26/2017 10/17/2020 Assessment & Plan (01/06/2020 9:48 AM CDT): a1c droopped to 6.2 so better. Assessment & Plan (06/08/2019 10:23 AM CDT): a1 Lat 6.2 and check onreturn Assessment & Plan (10/25/2018 9:46 AM PICKER TENDER): a1c at 6.2 and 6.5 diabetes Assessment & Plan (12/04/2017 4:20 PM PICKER TENDER): Chronic mild elevated sugar likely driving source of trhe nerve Affects this is most sommon from a ctual diabetes but chronic long lebvels of mild sugar will do it. Assessment & Plan (10/26/2017 9:17 AM PICKER TENDER): a1c at 5.9 and 5.6 nml. Paresthesia of foot 01/22/2017 07/13/20 25 Overview (02/27/2017): Paresthesia of foot Vitamin B-complex deficiency 02/18/2014 04/16/2017 Overview (01/09/2017): B-COMPLEX DEFIC NEC Hereditary and idiopathic pe ripheral neuropathy 02/18/2014 07/13/2025 Overview (01/09/2017): IDIO PERIPH NEURPTHY NOS Assessment & Plan (10/21/2021 9:20 AM PICKER TENDER): Stable ongoing Assessment & Plan (10/25/2018 9:48 AM PICKER TENDER): Stable and no o on meds. b12 needs to stayu at nl and off would expect to drop down Assessment & Plan (12/04/2017 4:18 PM PICKER TENDER): The prior changes on the r foot not that of regional pain sybndrome. What was there for color changes gone and no changes to supoort t]withprior temp chagnes then . So local neuropathy not playing a role wwiththehcutrrent toe issue/paion. Assessment & Plan (10/26/2017 9:23 AM PICKER TENDER): Stable and no changes. b12 up and nl prevents this from adding to problem Abnormal glucose tolerance test (GTT) 02/18/2014 10/26/2017 Overview (01/09/2017): IMPAIRED ORAL GLUCSE LETICIA Assessment & Plan (04/16/2017 9:39 AM CDT): a1c at 6.1 and 5.6 and lessnl. Stable and stay onIgt is the reduction of tolerance to simple carbs and usually looked at as a pre diabetic state. For most losing weight. Controlling the intake of simple carbs is helpful in improving this. We follow the a1c of most patients to monitor this Encounters Date Type Department Care Team Description 08/08/2025 Telephone [facility] [address] [place] [address] [address] [place] [address] Cary Kovacs MA 07/20/2025 ACO Medication Access [facility] Accountable Care Organization [address] [place] [id number] Kaylie Blackwell CPhT 07/18/2025 Telephone [facility] [address] [place] [phone] Linda Hillman MA 07/13/2025 10:00 AM CDT Office Visit [facility] [address] [place] [address] [address] [place] [address] Max Anderson MD 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, psychotic disturbance, mood disturbance, or anxiety (Primary Dx) from Last 3 Months Immunizations Immunization Administration Dates Next Due Influenza, Quad, Adjuvantate d, Intramuscular 08/31/2023,07/31/2022,07/26/2021 Influenza, Quadrivalent, Hig h Dose, Preservative Free, Intrr 08/04/2020 Influenza, Trivalent, Adjuva nted, Intramuscular 08/10/2024 Influenza, Trivalent, High D ose, Split, Preservative Free, Intramuscular 09/20/2019 Influenza, Unspecified 06/04/2022,2019,04/12/2020(Defer red: Patient Refused),06/08/2019(Deferred: Patient Refused - too early),07/05/2018(Deferred: Patient Refused),07/05/2018(Deferred: Patient Refused),07/05/2018(Deferred: Patient Refused),07/05/2018(Deferred: Patient Refused - approx date) [employer] SARS-CoV-2 Monovalent Vaccination (12+ Yrs) PURPLE 12/18/2020,11/27/2020 Pneumococcal Conjugate PCV 13 02/22/2019 Pneumococcal Conjugate Pcv20 08/31/2023,05/04/20 RSV Vaccine, Pref, Recombina nt, Subunit, Adjuvanted, PF, IM (Arexvy) 07/24/2023 Td, adsorbed 04/17/2021 Tdap 08/10/2024,04/21/2011 ZOSTER LIVE 09/26/2015 ZOSTER Recombinant 12/15/2022,09/11/2022 Surgical History Surgery Date Site/Laterality Comments FOOT SURGERY Bilateral COLONOSCOPY LAPAROSCOPIC SALPINGOOPHERECTOMY 03/05/2019 - 04/03/2019 Left benign serous cystadenoma UPPER GASTROINTESTINAL ENDOSCOPY APPENDECTOMY TOTAL ABDOMINAL HYSTERECTOMY 10/05/1975 - 10/04/1976 LEFT OOPHORECTOMY 10/05/1975 - 10/04/1976 OOPHORECTOMY FOOT SURGERY 02/07/2021 Right CERVICAL SPINE SURGERY ABDOMINAL SURGERY 2018 SKIN CANCER EXCISION Medical History Medical History Date Comments Malignant neoplasm of cervix (HCC) 1975 Hx of colonoscopy 02/09/2017 FOBT NEGATIVE Peptic ulcer disease H pylori re lated Delayed emergence from general anesthesia Chronic constipation COPD (chronic obstructive pulmonary disease) Ovarian cyst 03/2019 benign serous cy stadenoma Foot fracture 2016 CIS (carcinoma in situ of cervix) 1975 PERCY Other emphysema 06/08/2019 Cervical cancer (HCC) 1976 Hypercholesteremia Diabetes mellitus Memory change Osteoporosis 2005 Family History Medical History Relation Name Comments Parkinsonism Brother 1 Breast cancer Cousin 1 Breast cancer Cousin 2 Breast cancer Cousin 3 Ovarian cancer Cousin 3 Diabetes Father Milton Colbert Hypertension Mother Renata Colbert Memory loss Mother Renata Colbert Thyroid cancer Mother Renata Colbert Breast cancer Mother's Sister Obesity Sister Twyla Ranjit Anesthesia problems Neg Hx Colon cancer Neg Hx Thrombophilia Neg Hx Uterine cancer Neg Hx Relation Name Status Comments Brother 1 Alive Brother 2 Alive Cousin 1 Cousin 2 Cousin 3 Father Milton Colbert (Age 76) Mother Renata Colbert Mother's Sister Sister Twyla Ranjit Social History Tobacco Use Types Packs/Day Years Used Date Smoking Tobacco: Never Passive Smoke Exposure: Never Smokeless Tobacco: Never Tobacco Cessation:Counseling Given: Not Answered Alcohol Use Standard Drinks/Week Comments No 0 [...] on file Legal Sex Female 11:52 PM PICKER TENDER Gender Identity Not on file Sexual Orientation Not on file Occupation Industry Job Start Date Job End Date Retired Not on file Not on file Not on file Obstetrics History Para Term AB IAB SAB Ectopic Multiple Livin g Live Births 0 0 0 0 0 0 0 0 0 0 0 Last Filed Vital Signs Vital Sign Reading Time Taken Comments Blood Pressure 119/74 07/13/2025 9:53 AM CDT Pulse 67 07/13/2025 9:53 AM CDT Temperature 36.7 C (98.1 F) 02/06/2025 11:18 AM CDT Respiratory Rate 16 02/06/2025 11:18 AM CDT Oxygen Saturation 100% 07/13/2025 9:53 AM CDT Inhaled Oxygen Concentration - - Weight 42.3 kg (93 lb 3.2 oz) 07/13/2025 9:53 AM CDT Height 160 cm (5' 2.99) 07/13/2025 9:53 AM CDT Body Mass Index 16.51 07/13/2025 9:53 AM CDT Plan of Treatment Health Maintenance Due Date Last Done Comments Colon Cancer Screening-Colonoscopy 11/02/2024 11/02/2019, 11/02/2019, 02/09/2017, Additional history exists Foot Exam 02/04/2025 02/05/2024, 04/05, 10/17/2020 Influenza Vaccine (#1) 2025 , 08/31/2023, 07/31/2022, Additional history exists Osteoporosis Screening-Bone Density Scan 06/16/2025 06/16/2023, 06/07/2021, 03/18/2019, Additional history exists Lipid Panel 08/25/2025 08/25/2024, 04/05, 10/08/2021, Additional history exists Well Visit 65+ 09/07/2025 09/07/2024, 11/05, 05/04/2023, Additional history exists Hemoglobin A1C 12/14/2025 12/14/2024, 08/06, 05/10/2024, Additional history exists Albumin Creatinine Ratio, Urine 01/19/2026 01/19/2025, 08/25/2024, 04/27/2023, Additional history exists eGFR 01/25/2026 01/25/2025, 12/0 05/2024, 08/25/2024, Additional history exists Depression Screening 02/06/2026 02/06/2025, 01/19/2025, 12/16/2024, Additional history exists Fall Risk Assessment 02/06/2026 02/06/2025, 01/19/2025, 12/16/2024, Additional history exists Covid-19 Vaccine ( season) 2026 08/10/2024, 07/24/2023, 07/31/2022, Additional history exists Postponed from 06/05/2025 (Patient declined, but will receive in the future) Dilated Eye Exam 11/03/2026 11/03/2024, 02/2024, 04/28/2023, Additional history exists DTaP/Tdap/Td Vaccine (4 - Td or Tdap) 08/10/2034 08/10/2024, 04/17/2021, 04/21/2011 Hepatitis C Screening Completed 10/12/2017, 018 Colon Cancer Screening-CT Colonography Discontinued 11/02/2019, 11/02/2019, 02/09/2017, Additional history exists Colon Cancer Screening-DNA Stool Discontinued 11/02/2019, 11/02/2019, 02/09/2017, Additional history exists Colon Cancer Screening-FIT Discontinued 11/02, 11/02/2019, 02/09/2017, Additional history exists Colon Cancer Screening-Sigmoidoscopy Discontinued 11/02/2019, 11/02/2019, 02/09/2017, Additional history exists Zoster Vaccine Completed 12/15/2022, 05/2022, 09/26/2015 Pneumococcal vaccine 65+ Completed 023, 05/04/2023, 02/22/2019 Breast Cancer Screening-Mammogram Discontinued 12/31/2023, 09/09/2022, 06/13/2021, Additional history exists Hepatitis B Screening Completed 08/25/2024 Procedures Procedure Name Priority Date/Time Associated Diagnosis Comments COMPREHENSIVE METABOLIC PANEL Routine 01/25/2025 9:07 AM CDT Aphasia ALBUMIN CREATININE RATIO, URINE Routine 01/19/2025 12:37 PM CDT Ankle swelling, unspecified laterality HEMOGLOBIN A1C Routine 12/14/2024 1:08 PM CDT Type 2 diabetes mellitus without complication, without long-term current use of insulin (HCC) DIABETIC EYE EXAM Routine 11/03/2024 LIPID PANEL Routine 08/25/2024 9:31 AM PICKER TENDER Hyperlipidemia due to type 2 diabetes mellitus (HCC) SCREENING MAMMOGRAM BILATERAL W BENJI Schedule Routine, Read Routine (OP Routine) 12/31/2023 4:03 PM CDT Screening mammogram, encounter for DEXA AXIAL SKELETON BONE DENSITY 1 OR MORE SITES Schedule Routine, Read Routine (OP Routine) 06/16/2023 8:15 AM CDT Other specified disorders of bone density and structure, multiple sites COLONOSCOPY 11/02/2019 10:53 AM PICKER TENDER HEPATITIS C AB REFLEX RNA QUANT PCR Routine 10/12/2017 3:42 PM PICKER TENDER from Last 3 Months or Most Recently Relevant to Health Maintenance Results * (ABNORMAL) Comprehensive metabolic panel (01/25/2025 9:07 AM CDT) Glucose 257(H) 65 - 99 mg/dL [facility] Comment: Fasting reference interval For someone without known diabetes, a glucose value >125 mg/dL indicates that they may have diabetes and this should be confirmed with a follow-up test. BUN 17 7 - 25 mg/dL [facility] Creatinine 0.72 0.60 - 1.00 mg/dL [facility] eGFR 87 > OR = 60 mL/min/1.7 3m2 [facility] BUN/creat ratio SEE NOTE: 6 - 22 (calc) [facility] Comment: Not Reported: BUN and Creatinine are within reference range. Sodium 138 135 - 146 mmol/L [facility] Potassium, pl 3.9 3.5 - 5.3 mmol/L [facility] Chloride 97(L) 98 - 110 mmol/L [facility] CO2 36(H) 20 - 32 mmol/L [facility] Calcium 9.4 8.6 - 10.4 mg/dL [facility] Protein, sr 6.9 6.1 - 8.1 g/dL [facility] Albumin 4.6 3.6 - 5.1 g/dL [facility] GLOBULIN 2.3 1.9 - 3.7 g/dL (calc) [facility] Alb/glob ratio 2.0 1.0 - 2.5 (calc) [facility] Bilirubin, total 0.8 0.2 - 1.2 mg/dL [facility] Alk phos 105 37 - 153 U/L [facility] AST 15 10 - 35 U/L [facility] ALT (SGPT) 14 6 - 29 U/L [facility] Blood 01/25/2025 9:07 AM CDT 01/25/2025 9:08 AM CDT Narrative [facility] - 01/26/2025 4:32 AM CDT FASTING:YES FASTING: YES Ashley Addison MD LAB BLOOD ORDERABLES Final Result Performing Organization Address City/[facility]/ZIP Co de Phone Number [facility] [address] [place] [address] * Albumin Creatinine Ratio, Urine (01/19/2025 12:37 PM CDT) Pathologist [facility] Creatinine, ur 85 20 - 275 mg/dL [facility] Microalbumin, ur 0.9 See Note: mg/dL [facility] Comment: Reference Range: Reference Range Not established Microalbumin/creat ratio 11 <30 mg/g creat [facility] Comment: The ADA defines abnormalities in albumin excretion as follows: Albuminuria Category Result (mg/g creatinine) Normal to Mildly increased <30 Moderately increased 30-299 Severely increased > OR = 300 The ADA recommends that at least two of three specimens collected within a 3-6 month period be abnormal before considering a patient to be within a diagnostic category. Urine 01/19/2025 12:3 7 PM CDT 01/19/2025 12:45 PM CDT Narrative [facility] - 01/20/2025 6:39 AM CDT FASTING:NO FASTING: NO us Ashley Addison MD LAB URINE ORDERABLES Final Result Performing Organization Address City/[facility]/ZIP Co de Phone Number [facility] [address] [place] [address] * (ABNORMAL) Hemoglobin A1c (12/14/2024 1:08 PM CDT) Hgb A1C 9.3(H) 4.0 - 5.6 % Comment:Testing performed by : [address] [id number] Estimated Average Glucose 220 mg/dL [facility] (DOMINIC) Comment: The ADA recommends reporting an estimated Average Glucose (eAG) with all Hemoglobin A1c results using the equation derived from a study of 507 normal and diabetic adults. Minority populations were underrepresented and children were not included. (Diabetes Care 31:3254-0466, 2008). The eAG is not equivalent to a fasting glucose. Testing performed by: [facility], [address] [place] [address]., [id number] Blood 12/14/2024 1:08 PM CDT 12/14/2024 6:02 PM CDT Ashley Addison MD LAB BLOOD ORDERABLES Final Result ES CRUZ (DOMINIC) 1 [facility] Department [place] [address] * Diabetic Eye Exam (11/03/2024) Generic External Data Provider HEALTH MAINTENANC E Final Result * Lipid panel (08/25/2024 9:31 AM PICKER TENDER) Cholesterol 195 30 - 199 mg/dL Comment: Interpretive Data Ages < or = 19 years Acceptable: <170 mg/dL Borderline high: 170-199 mg/dL High: >or= 200 mg/dL Ages > or = 20 years Desirable: <200 mg/dL Borderline high: 200-239 mg/dL High: >or= 240 mg/dL Literature References: 1. Expert Panel on Integrated Guidelines for Cardiovascular Health and Risk Reduction in Children and Adolescents. Pediatrics 2011;128:S213 2. NCEP Expert Panel. Circulation 2004;110:227 Current Interpretive Data was last revised on 2018. Testing performed by: [address] [place] [address] Triglycerides 78 <=149 mg/dL [facility] (DOMINIC) Comment: Interpretive Data Ages < or = 9 years Acceptable: <75 mg/dL Borderline high: 75-99 mg/dL High: >or= 100 mg/dL Ages 10 to 20 years Acceptable: <90 mg/dL Borderline high: 90-129 mg/dL High: >or= 130 mg/dL Ages > or = 20 years Desirable: <150 mg/dL Borderline high: 150-199 mg/dL High: 200-499 mg/dL Very high: >or= 499 mg/dL Literature References: 1. Expert Panel on Integrated Guidelines for Cardiovascular Health and Risk Reduction in Children and Adolescents. Pediatrics 2011;128:S213 2. NCEP Expert Panel. Circulation 2004;110:227 Current Interpretive Data was last revised on 2018. Testing performed by: [facility], [address] [place] [address]., [address] HDL 82 >=40 mg/dL ES Brown (DOMINIC) Comment: Interpretive Data Ages < or = 19 years Acceptable: >45 mg/dL Borderline low: 40-45 mg/dL Low: <40 mg/dL Ages > or = 20 years Desirable: >or= 60 mg/dL Low: <40 mg/dL Literature References: 1. Expert Panel on Integrated Guidelines for Cardiovascular Health and Risk Reduction in Children and Adolescents. Pediatrics 2011;128:S213 2. NCEP Expert Panel. Circulation 2004;110:227 Current Interpretive Data was last revised on 2018. Testing performed by: [facility], [address] [place] [address]., [id number] LDL, calculated 99 <=129 mg/dL [facility] CRU[facility] (DOMINIC) Comment: Interpretive Data Ages < or = 19 years Acceptable: <110 mg/dL Borderline high: 110-129 mg/dL High: >or= 130 mg/dL Ages > or = 20 years Optimal: <100 mg/dL Near optimal: 100-129 mg/dL Borderline high: 130-159 mg/dL High: >160 mg/dL Calculated using the Lopez LDL-C estimating equation. This equation was implemented on 2024. Prior to this date LDL-C was estimated using the Friedewald equation. Literature References: 1. Expert Panel on Integrated Guidelines for Cardiovascular Health and Risk Reduction in Children and Adolescents. Pediatrics 2011;128:S213 2. NCEP Expert Panel. Circulation 2004;110:227 3. Lopez M et al. LAUREANO Cardiol. 2020 February 02;5(5):540-548. doi: 10.1001/[email or web address] Current Interpretive Data was last revised on 2024. Testing performed by: [facility], [address] [place] [address]., [address] Non-HDL Cholesterol 113 mg/dL [facility] (DOMINIC) Comment: Interpretive Data Ages < or = 19 years Acceptable: <120 mg/dL Borderline high: 120-144 mg/dL High: >145 mg/dL Ages > or = 20 years When triglycerides are >200 mg/dL, Non-HDL cholesterol is a secondary target of therapy with treatment goals that are 30 mg/dL greater than the LDL cholesterol target. Literature References: 1. Expert Panel on Integrated Guidelines for Cardiovascular Health and Risk Reduction in Children and Adolescents. Pediatrics 2011;128:S213 2. NCEP Expert Panel. Circulation 2004;110:227 Current Interpretive Data was last revised on 2018. Testing performed by: [facility], [address] [place] [address]., [id number] Chol/HDL ratio 2 ALMA ROSA CRUZ (DOMINIC) Comment:Testing performed by : [facility], [address] [place] [address]., [id number] Blood 08/25/2024 9:31 AM PICKER TENDER 08/25/2024 12:15 PM PICKER TENDER Narrative [facility] CRUZ (DOMINIC) - 08/25/2024 1:08 PM PICKER TENDER Fasting us Ashley Addison MD LAB BLOOD ORDERABLES Final Result ES CRUZ (DOMINIC) 1 [facility] [place] [address] * Screening Mammogram Bilateral W Benji (12/31/2023 4:03 PM CDT) Anatomical Region Laterality Modality Breast Bilateral Mammography 01/01/2024 9:30 AM CDT Impressions 01/01/2024 9:30 AM CDT There is no mammographic evidence of malignancy. A 1 year screening mammogram is recommended. BI-RADS: 1 - Negative. The patient has been or will be contacted. The patient will be entered into a reminder system with a target due date of 1 year for her next mammogram. Electronically signed by: Vani Sepulveda M.D. Narrative 01/01/2024 9:30 AM CDT EXAMINATION: SCREENING MAMMOGRAM BILATERAL W BENJI ORDERING HEALTHCARE PROVIDER: SELF SCREENING MAMMOGRAM HISTORY: Routine screening mammography. COMPARISON: 09/09/2022, 06/13/2021, 05/07/2020 TECHNIQUE: CC and MLO views of the bilateral breasts were obtained with digital technique using breast tomosynthesis with C view. Computer aided detection was utilized. FINDINGS: DENSITY: The tissue of the breasts is extremely dense, which lowers the sensitivity of mammography. BREASTS: There are no suspicious masses, suspicious calcifications, or other suspicious findings in either breast. There has been no suspicious interval change. us Self Screening Mammogram IMG MAMMO PROCEDURES Fi nal Result * Dexa Axial Skeleton Bone Density 1 or 2 Site (06/16/2023 8:15 AM CDT) Anatomical Region Laterality Modality Body N/A Other 06/16/2023 6:15 PM CDT Narrative 06/16/2023 6:16 PM CDT EXAM DESCRIPTION: DEXA AXIAL SKELETON BONE DENSITY 1 OR MORE SITES REASON FOR STUDY: 73 y/o year old F with given history of: screening screening postmenopausal Audience Development Manager/Model: [employer] (S/N [id number]) CLINICAL INFORMATION: Current height: 64.5 inches Maximum height: 66.5 inches Weight: 95.5 pounds Risk factors: Postmenopausal, cancer COMPARISON: 03/18/2019 FINDINGS: AP LUMBAR SPINE L1-L4: Total BMD is 0.873 g/cm2 T-score is -1.6 Dissimilar scan types or analysis methods precludes assessment for calculating a significant change. LEFT HIP: Total BMD is 0.723 g/cm2 T-score is -1.8 Femoral neck BMD is 0.680 g/cm2 T-score is -1.5 FRAX: 10 year risk for a major osteoporotic fracture is 8.2 %, 10 year risk for a hip fracture is 1.7 % IMPRESSION: Low Bone Mass. REFERENCE: Bone mineral density: Normal (T-score above or = -1.0) Low bone mass (T-score between -1.0 and -2.5) replaces the previously used term osteopenia Osteoporosis (T-score = or below -2.5) Medical evaluation for secondary causes of low bone mineral density may be appropriate. FRAX is a World Health Organization validated fracture risk assessment tool that calculates a person's 10 year probability of a major osteoporosis related fracture and hip fracture. According to the National Osteoporosis Foundation guidelines, postmenopausal women and men age 50 or older with low bone mass and a 10 year probability of a major osteoporosis related fracture = or greater than 20% or a 10 year probability of a hip fracture = or greater than 3% should be considered for treatment. For further information, including treatment recommendations, please refer to the 2019 ISCD Official Positions (http://www.iscd.org) and the NOF's Clinician's Guide to Prevention and Treatment of Osteoporosis (http://www.nof.org/professionals/clinical-guidelines) THIS IS AN ELECTRONICALLY VERIFIED FINAL REPORT 06/16/2023 6:16 PM - Electronically signed by Max Suresh M.D. MF: JOAN Report ID: [id number] Reading Location: [address] Note Max Suresh MD - 06/16/2023 EXAM DESCRIPTION: DEXA AXIAL SKELETON BONE DENSITY 1 OR MORE SITES REASON FOR STUDY: 73 y/o year old F with given history of: screening screening postmenopausal Audience Development Manager/Model: [employer] (S/N [id number]) CLINICAL INFORMATION: Current height: 64.5 inches Maximum height: 66.5 inches Weight: 95.5 pounds Risk factors: Postmenopausal, cancer COMPARISON: 03/18/2019 FINDINGS: AP LUMBAR SPINE L1-L4: Total BMD is 0.873 g/cm2 T-score is -1.6 Dissimilar scan types or analysis methods precludes assessment for calculating a significant change. LEFT HIP: Total BMD is 0.723 g/cm2 T-score is -1.8 Femoral neck BMD is 0.680 g/cm2 T-score is -1.5 FRAX: 10 year risk for a major osteoporotic fracture is 8.2 %, 10 year risk fora hip fracture is 1.7 % IMPRESSION: Low Bone Mass. REFERENCE: Bone mineral density: Normal (T-score above or = -1.0) Low bone mass (T-score between -1.0 and -2.5) replaces thepreviously used term osteopenia Osteoporosis (T-score = or below -2.5) Medical evaluation for secondary causes of low bone mineral density may be appropriate. FRAX is a World Health Organization validated fracture risk assessmenttool that calculates a person's 10 year probability of a major osteoporosisrelated fracture and hip fracture. According to the National OsteoporosisFoundation guidelines, postmenopausal women and men age 50 or older with low bonemass and a 10 year probability of a major osteoporosis related fracture = or greater than 20% or a 10 year probability of a hip fracture = or greaterthan 3% should be considered for treatment. For further information, including treatment recommendations, please referto the 2019 ISCD Official Positions (http://www.iscd.org) and the NOF's Clinician's Guide to Prevention and Treatment of Osteoporosis (http://www.nof.org/professionals/clinical-guidelines) THIS IS AN ELECTRONICALLY VERIFIED FINAL REPORT 06/16/2023 6:16 PM - Electronically signed by Max Suresh M.D. MF: [email or web address] Report ID: [id number] Reading Location: [place] [address] Ashley Addison MD IM DXA PROCEDURES Fi nal Result * COLONOSCOPY (11/02/2019 10:53 AM PICKER TENDER) Anatomical Region Laterality Modality Other Narrative Procedure Note Kaia Christianson MD - 11/02/2019 10:53 AM [facility]ST [facility] Patient Name: Pam Colbert Procedure Date: 11/02/2019 10:53 AM Date of : 1950 Admit Type: Outpatient Age: 69 Gender: Female Attending MD: Kaia Christianson M.D. Room: [facility] ENDOSCOPY ROOM 5 Note Status: Finalized Procedure: Colonoscopy Indications: Last colonoscopy: 2011, Chronic ulcerative proctitis (reported on colonsocpy report), Constipation Referring MD: Sergey Mcelroy M.D. Providers: Kaia Christianson M.D., Vicente Tidwell MD Medicines: Monitored Anesthesia Care Complications: No immediate complications. Estimated Blood Loss: Estimated blood loss was minimal. Procedure: Pre-Anesthesia Assessment: - Prior to the procedure, a History and Physical was performed, and patient medications, allergies and sensitivities were reviewed. The patient's toleranceof previous anesthesia was reviewed. - Immediately prior to administration ofmedications, the patient was re-assessed for adequacy to receive sedatives. - The risks and benefits of the procedure and the sedation options and risks were discussed with the patient. All questions were answered and informed consent was obtained. The benefits, risks and alternatives of theprocedure and sedation were discussed and informed consent was obtained. All questions were answered. Please referto the signed informed consent document in the medical record. The scope was passed under direct vision.The Colonoscope was introduced through the anus and advanced to the terminal ileum. The colonoscopy was performed without difficulty. The quality of thebowel preparation was evaluated using the BBPS (BostonBowel Preparation Scale) with scores of: Right Colon = 3 (entire mucosa seen well with no residual staining, small fragments of stool or opaque liquid),Transverse Colon = 3 (entire mucosa seen well with no residual staining, small fragments of stool or opaque liquid) and Left Colon = 3 (entire mucosa seen well with no residual staining, small fragments of stool oropaque liquid). The total BBPS score equals 9. The qualityof the bowel preparation was excellent. The bowel preparation used was GoLYTELY. Bowel prep was administered using a split dose. The quality of the bowel preparation was excellent. Findings: The terminal ileum appeared normal. A 5 mm polyp was found in the ileocecal valve. The polyp was sessile. The polyp was removed with a cold biopsy forceps. Resection and retrieval were complete. One medium-mouthed diverticulum was found in the ascending colon. The mucosa vascular pattern in the entire colon was diffuselyincreased. This was biopsied with a cold forceps for histology. Diffuse mild inflammation characterized by altered vascularity, congestion (edema) and erythema was found in the rectum. This was biopsied with a cold forceps for histology. The perianal and digital rectal examinations were normal. The retroflexed view of the distal rectum and anal verge was normaland showed no anal or rectal abnormalities. Impression: - The examined portion of the ileum was normal. - One 5 mm polyp at the ileocecal valve, removedwith a cold biopsy forceps. Resected and retrieved. - Diverticulosis in the ascending colon. - Increased mucosa vascular pattern in the entire examined colon. Biopsied. - Diffuse mild inflammation was found in the rectum consistent with ulcerative colitis. Biopsied. - The distal rectum and anal verge are normal on retroflexion view. Recommendation: - Await pathology results. - Return to GI clinic as previously scheduled. Electronically signed by Kaia Christianson MD Kaia Christianson M.D. 11/02/2019 11:49:29 AM . Number of Addenda: 0 Note Initiated On: 11/02/2019 10:53 AM Recognized by the [employer] for promoting quality in endoscopy Kaia Christianson MD ENDOSCOPY PROCEDURES Final Resu lt * Hepatitis C Antibody Reflex Hepatitis C RNA Quantitative PCR (10/12/2017 3:42 PM PICKER TENDER) Hep C Ab Negative Negative [facility] Blood specimen (specimen) 10/12/2017 3:42 PM PICKER TENDER 10/12/2017 3:42 PM PICKER TENDER Narrative [facility] - 10/12/2017 6:52 PM PICKER TENDER us Sergey Mcelroy MD LAB MICROBIOLOGY - [place] [id number] [address] Department [place] [address] from Last 3 Months or Most Recently Relevant to Health Maintenance Insurance [facility] MEDICARE [facility] MED[facility] Advance Directives For more information, please contact: [phone] Documents on File Type Date Recorded 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 Advance Directives and Living Will 07/13/2025 9:45 AM Healthcare POA ADVANCE DIRECTIVE 01/20/2025 9:47 AM POWER OF MINING CAPTAIN-MEDICAL * Full Code (Latest Code Status on File) Date Activated Date Inactivated Comments 11/02/2019 10:07 AM 11/02/2019 5:09 PM Care Teams A&P Mechanic Relationship Specialty Start Date End Date Ashley Addison MD [address] [place] [address] PCP - General Family Medicine 06/26/22 Nelsy Young MD [address] [place] [address] Consulting Physician Obstetrics and Gynecology 03/02/19 Arnoldo Ventura DO [address] [place] [address] Consulting Physician Gastroenterology 12/16/24
--- OUTSIDE RECORDS SUMMARY | 2025-09-06 11:57 | XMS_ITS | Encounter Summary ---
Author Organization [facility] Healthcare Address [address] [place] [address] Care Team Providers Care Lease Purchase Driver Name Role Phone Sergey Mcelroy MD Primary Care Provi cee Nelsy Young MD Unavailable [phone] Ashley Addison MD Primary Care Provide r Ange Hernandez MA Unavailable Arnoldo Ventura DO Unavailable [phone] Reason for Visit * Reason Onset Date Comments Scheduling Appointments 06/12/2021 Confirmi ng mammogram appt Encounter Details Date Type Department Care Team (Late st Contact Info) Description 06/12/2021 Telephone [facility] [address] [place] [address] Kelly Musa, Scheduling Appointments (Confirming mammogram appt) Social History Tobacco Use Types Packs/Day Years [...] by your partner or ex-partner? No 02/25/2021 PHQ-2 Answer Date Recorded PHQ-2 Total Score (If total score is 3 or more points, staff should administer the PHQ-9) 0 04/17/2021 Comments No Sex and Gender Information Value Date Recorded Sex Assigned at Not on file Legal Sex Female 11:52 PM MARINE DRAFTER Gender Identity Not on file Sexual Orientation Not on file documented as of this encounter Plan of Treatment Not on file documented as of this encounter Visit Diagnoses Not on filedocumented in this encounter Additional Health Concerns Infection Onset Date Last Indicated Resolved Time COVID: Suspected 04/11/2022 04/11/2022 04/11/2022 8:17 AM CDT COVID: Suspected 09/10/2023 09/10/2023 09/10/2023 10:40 AM MARINE DRAFTER documented as of this encounter Care Teams Lease Purchase Driver Relationship Specialty Start Date End Date Sergey Mcelroy MD PCP - General 01/02/17 06/25/22 Ashley Addison MD [address] [facility] [address] [place] [address] PCP - General Family Medicine 06/26/22 Nelsy Young MD [address] [place] [address] Consulting Physician Obstetrics and Gynecology 03/02/19 Ange Hernandez MA [address] [place] [address] [address] [place] [address] ACO Care Strip Picker 09/13/24 09/14/24 Arnoldo Ventura DO [address] [place] [address] [address] [place] [address] Consulting Physician Gastroenterology 12/16/24 documented as of this encounter
== END 2025-09-06 11:40 | disposition home or self-care (01) ==
PROVIDERS: Emergency Provider Registered Nurse; PCP Family Medicine
DX: N39.0 Urinary tract infection, site not specified (principal); G30.9 Alzheimer's disease, unspecified; F02.80 Dementia in other diseases classified elsewhere, unspecified severity, without behavioral disturbance, psychotic disturbance, mood disturbance, and anxiety; E11.9 Type 2 diabetes mellitus without complications; Z85.42 Personal history of malignant neoplasm of other parts of uterus
CPT/HCPCS: 81003; 82948; 87086; 99213; G0463